=== PATIENT | female | born 1930 | race Caucasian/White ===

== ENCOUNTER 2018-12-17 17:35 | Emergency (ER) | payer MEDICARE, OTHER ==
[~2018-12-17] VITALS: Ht 152.4 cm; Wt 46.7 kg
[~2018-12-17 17:35] MED LIST: ACET325 PO; ALBU2.5V5 NEB; ALBU3IS INH; ALBU90OI INH; ALPR1 PO; ASPI81CH PO; ASPI81EC PO; AZIT250; Alphagan P 5ML5 ML BOTHEYES; Aspir 8181 MG PO; BENZ100A; BENZ100A PO; BREO ELLIPTA; BRIM.15SO BOTHEYES; BUDE6HFA; BUDE6HFA INH; CEFP200; CIPR500 PO; CIPRO500 MG PO; Calcium Magnes1 EACH PO; Chest Congesti400 MG PO; DIPH50 PO; DONE5; FENT25TP TOP; Flonase 0.05% N16 GM; GAVILAX17 GM PO; GLAUCOMA GTTS; LEVFLO500 PO; LEVSOD100 PO; LEVSOD88; LEVSOD88 PO; LIDO5TP TOP; MAGNESIUM GLUCONATE PO; MELA3 PO; METO25 PO; MIRALAX17 GM; Omeprazole20 M1 PO; POTCHL20ER PO; PRED20; PROZAC20 MG PO; Pepcid40 MG PO; Prednisone20 MG PO; Prozac20 MG PO; THYR60 PO; THYROXINE; TIMO.25OPS BOTHEYES; TIMOLOL 0.5%-DO10 ML BOTHEYES; TIMOLOL 0.5%-DO10 ML OP; TRAV.004OP BOTHEYES; Travatan Z5 ML BOTHEYES; Travatan Z5 ML OP; ZINC15 PO; Zithromax250 MG PO; Zofran Odt4 MG SL; [UNRECOGNIZED DRUG - OTHER]; [UNRECOGNIZED DRUG - REMARK]
[2018-12-17] MEDS ORDERED: Erythromycin 2%30 GM TOP (17:58)
== END 2018-12-17 18:11 | disposition home or self-care (01) ==
LOC: ER 17:35
DX: L71.0 Perioral dermatitis (principal); Z88.0 Allergy status to penicillin; Z91.041 Radiographic dye allergy status; Z79.899 Other long term (current) drug therapy; Z79.82 Long term (current) use of aspirin; J44.9 Chronic obstructive pulmonary disease, unspecified; Z87.891 Personal history of nicotine dependence
CPT/HCPCS: 99282